=== PATIENT | female | born 1960 | race Caucasian/White ===

== ENCOUNTER → 2018-12-19 | Outpatient (CLI) | payer OTHER | LOC: CIMAGING 11:46 | PROVIDERS: ATTEND Family Medicine | DX: R91.8 Other nonspecific abnormal finding of lung field (principal); R63.4 Abnormal weight loss; Z72.0 Tobacco use | CPT/HCPCS: 71046-PO ==

== ENCOUNTER → 2018-12-25 | Outpatient (CLI) | payer OTHER ==
[~2018-12-25] MED LIST: IOPAMIDOL (ISOVUE-300) 100 ML BTL ONE
== END ==
LOC: CIMAGING 10:01
PROVIDERS: ATTEND Family Medicine
DX: R91.1 Solitary pulmonary nodule (principal); N28.89 Other specified disorders of kidney and ureter; D64.9 Anemia, unspecified; E03.9 Hypothyroidism, unspecified; E08.9 Diabetes mellitus due to underlying condition without complications; R10.9 Unspecified abdominal pain; R63.4 Abnormal weight loss; Z51.81 Encounter for therapeutic drug level monitoring; Z72.0 Tobacco use
CPT/HCPCS: 71260-PO; 74177-PO; 76536-PO; Q9967